=== PATIENT | female | born 1955 | race Caucasian/White ===

== ENCOUNTER 2016-04-27 15:15 | Emergency (ER) | payer BC ==
[~2016-04-27] VITALS: Ht 157.5 cm; Wt 106.1 kg
[~2016-04-27 15:15] MED LIST: ATIVAN0.5 MG PO; HYDROCODON-ACE1 EAC7 PO; LYRICA100 MG PO; LYRICA75 MG PO; MOTRIN400 MG PO; MOTRIN600 MG PO; OMEPRAZOLE40 MG PO; OXYCODONE-APAP1 EAC6 PO; PAXIL40 MG PO; PRILOSEC40 MG PO; TYLENOL WITH C1 EACH PO; Vicodin,Norco 5/325 PO; XELODA500 MG PO
[2016-04-27] MEDS ORDERED: PERCOCET 5/31 TABLET PO (17:14)
[2016-04-27 17:20] VITALS: BP 137/103
== END 2016-04-27 17:21 | disposition home or self-care (01) ==
LOC: EME 15:15
PROC: 2W39X1Z Immobilization of Left Upper Extremity using Splint (ICD-10-PCS; principal; 2016-04-27)
DX: S52.022A Displaced fracture of olecranon process without intraarticular extension of left ulna, initial encounter for closed fracture (principal); W18.39XA Other fall on same level, initial encounter; Y93.K1 Activity, walking an animal; Y92.480 Sidewalk as the place of occurrence of the external cause
CPT/HCPCS: 73070; 99281; 99284

== ENCOUNTER → 2017-02-27 | Outpatient (CLI) | payer OTHER, MEDICARE ==
[~2017-02-27] MED LIST changes: +PERCOCET 5/31 TABLET PO
== END | disposition home or self-care (01) ==
LOC: RAD 13:27
PROC: 3E0R3KZ Introduction of Other Diagnostic Substance into Spinal Canal, Percutaneous Approach (ICD-10-PCS; principal; 2017-02-27)
DX: M43.17 Spondylolisthesis, lumbosacral region (principal); M48.05 Spinal stenosis, thoracolumbar region; M51.27 Other intervertebral disc displacement, lumbosacral region; M51.24 Other intervertebral disc displacement, thoracic region; Z98.890 Other specified postprocedural states; R93.7 Abnormal findings on diagnostic imaging of other parts of musculoskeletal system; T45.1X5A Adverse effect of antineoplastic and immunosuppressive drugs, initial encounter; M54.16 Radiculopathy, lumbar region; G62.0 Drug-induced polyneuropathy; E66.9 Obesity, unspecified; R29.898 Other symptoms and signs involving the musculoskeletal system
CPT/HCPCS: 62304; 72132